=== PATIENT | female | born 1985 | race Two or more races ===

== ENCOUNTER 2025-03-27 19:57 | Emergency (ER) | payer OTHER ==
[~2025-03-27] VITALS: Ht 162.6 cm; Wt 55.3 kg
[2025-03-27] MEDS ORDERED: IBUP-1955 PO (21:13)
[2025-03-27] MEDS ORDERED: ACET325C7 PO (21:13)
[2025-03-27 21:44] VITALS: BP 122/80; TEMP 98.5; O2SAT 99
== END 2025-03-27 21:44 | disposition home or self-care (01) ==
LOC: ER 20:00
DX: N64.4 Mastodynia (principal); G43.909 Migraine, unspecified, not intractable, without status migrainosus; J45.909 Unspecified asthma, uncomplicated; K58.9 Irritable bowel syndrome, unspecified; Z90.49 Acquired absence of other specified parts of digestive tract; Z91.018 Allergy to other foods
CPT/HCPCS: 76641-TC